=== PATIENT | male | born 1995 | race Caucasian/White ===

== ENCOUNTER 2017-01-03 23:36 | Emergency (ER) | payer OTHER ==
[2017-01-03 23:49] VITALS: BP 113/78; PULSE 83; RESP 18; TEMP 98.4; O2SAT 94
[2017-01-04] MEDS ORDERED: ONDANSETRON DISINTEGRATING 4 MG TAB PO ONE (00:14)
[2017-01-04] MEDS ORDERED: OXYCODONE/APAP 5/325 TAB PO ONE (00:16)
--- NOTE | 2017-01-04 00:17 | EDPHY ---
H & P Time Seen by Provider: 01/04/17 00:01 HPI/ROS: CHIEF COMPLAINT: Headache HISTORY OF PRESENT ILLNESS: This is a 21-year-old male presenting to the emergency department reports playing softball this evening around 2200 collided with another player. Patient states he was running to catch the ball he ran into a bigger players shoulder with his face, patient states he was dazed initially no LOC no witnessed LOC. Patient complaining of a right-sided face pain upper lip pain, nausea. Denies any chest pain or shortness of breath REVIEW OF SYSTEMS: Constitutional: No fever, no chills. Eyes: No discharge. No blurred vision ENT: No sore throat. Upper lip swelling Cardiovascular: No chest pain, no palpitations. Respiratory: No cough, no shortness of breath. Gastrointestinal: No abdominal pain, no vomiting. Intermittent nausea Genitourinary: No hematuria. Musculoskeletal: No back pain. Skin: No rashes. Neurological: Intermittent headache. Smoking Status: Never smoked Physical Exam: General Appearance: Alert, no distress. Non ill-appearing pleasant Eyes: Pupils equal and round no pallor or injection. ENT, Mouth: Upper lip swelling noted. Abrasion noted to the upper internal lip no puncture wound no laceration. Mucous membranes moist. No broken teeth noted. No TMJ pain. No trismus. No malocclusion. Abrasion noted to right side of nares Respiratory: There are no retractions, lungs are clear to auscultation. Cardiovascular: Regular rate and rhythm. Gastrointestinal: Abdomen is soft and nontender, no masses, bowel sounds normal. Neurological: No focal deficits. Answering questions appropriately Skin: Warm and dry, no rashes. Musculoskeletal: Vertebral cervical spine nontender on palpation. Full range of motion Extremities: symmetrical, full range of motion. Psychiatric: Patient is oriented X 3, there is no agitation. Acting appropriately Constitutional: Initial Vital Signs Temperature (C) 36.9 C 01/03/17 23:45 Heart Rate 83 01/03/17 23:45 Respiratory Rate 18 01/03/17 23:45 Blood Pressure 113/78 01/03/17 23:45 O2 Sat (%) 94 01/03/17 23:45 O2 Delivery Mode Room Air Allergies/Adverse Reactions: No Known Allergies Allergy (Unverified 01/03/17 23:43) Medical Decision Making ED Course/Re-evaluation: Discussed ED plan of care: Head CT not indicated in this adult patient patient does not fall under any of this criteria: no severe headache, vomiting, >65yo, anticoagulated, LOC and intoxicated, LOC and visible head trauma, LOC and headache, seizure, fall greater than 3 feet. 0025: Discharge home---> stable, not apparent distress, no focal deficits, discussed all discharge instructions the patient Differential Diagnosis: Other differential diagnosis considered but not limited to nasal fracture, syncope, concussion, lip laceration Departure - Departure Disposition: Home, Routine, Self-Care Clinical Impression: Concussion Qualifiers: Encounter type: initial encounter Loss of consciousness presence/duration: without LOC Qualified Code(s): S06.0X0A - Concussion without loss of consciousness, initial encounter Condition: Good Instructions: Concussion (ED) Additional Instructions: 1. Ibuprofen 600 mg every 6-8 hours 2. Ice pack to face and lip 15 minutes several times a day to help decrease swelling 3. Also sent home with concussion precautions closed head injury precautions. If any symptoms worsen return to the ER Referrals: NONE *PRIMARY CARE P,. [Primary Care Provider] - As per Instructions [facility],. [Clinic] - As per Instructions Mk Patterson MD [Medical Doctor] - As per Instructions
== END 2017-01-04 00:33 | disposition home or self-care (01) ==
DX: S06.0X0A Concussion without loss of consciousness, initial encounter (principal); W50.0XXA Accidental hit or strike by another person, initial encounter; Y93.64 Activity, baseball